=== PATIENT | female | born 1930 | race Caucasian/White ===

== ENCOUNTER 2016-12-24 16:03 | Observation (INO) ==
[2016-12-24 16:44] LABS: Basophils # (Auto) 0 K/mcL (0.0-0.3); Basophils % (Auto) 0.3 % (0.0-2.0); Eosinophils # (Auto) 0.4 K/mcL (0.0-0.7); Eosinophils % (Auto) 3.4 % (0.0-7.0); Granulocytes % (Auto) 50.5 % (38.0-78.0); Lymphocytes # (Auto) 4.6 K/mcL (1.5-4.8); Lymphocytes % (Auto) 38.6 % (15.5-49.0); Mean Cell Volume 85.6 fL (80.0-100.0); Mean Corpuscular Hemoglobin 27.4 pg (26.0-34.0); Monocytes # (Auto) 0.9 K/mcL (0.1-0.9); Monocytes % (Auto) 7.2 % (1.0-9.0); Platelet Count 240 K/mcL (140-440); RBC 3.79 M/mcL (4.00-5.20); Red Cell Distribution Width 18.6 % (11.5-14.5)
[2016-12-24 17:03] LABS: ALT/SGPT 10 U/l (0-40); Albumin 3.7 gm/dL (3.2-5.2); Albumin/Globulin Ratio 1.3 (1.0-2.3); Alkaline Phosphatase 63 U/L (39-117); Blood Urea Nitrogen 25 mg/dl (8-23)
--- NOTE | 2016-12-24 17:11 | Cat Scan Report ---
CLINICAL INFORMATION: Fell in the bathroom. Head injury. Unresponsive. COMPARISON: Previous brain CT scan dated 04/18/2014 TECHNIQUE: Axial noncontrast-enhanced images through the brain. FINDINGS: There is a left occipital calvarial fracture. There is mild depression. Fracture involves the skull base on the left. There is hemorrhage within left mastoid air cells. There is fluid within the left middle ear. There is also fluid within right mastoid air cells. There is hemorrhage within the sphenoid air cells. There is a fracture involving the left lateral wall of the sphenoid air cells. There is extensive pneumocephalus. There is a large right frontal hemorrhagic contusion which is considered contrecoup. Area of hemorrhagic contusion measures approximately 5 cm There is a large right subdural hematoma. This measures approximately 15 mm in thickness. There is extensive subarachnoid hemorrhage. There is intraventricular hemorrhage. Basilar cisterns are effaced. Right uncal herniation is likely. There is significant transfalcine herniation. There is 15 mm midline shift. Left lateral ventricle is trapped and enlarged. IMPRESSION: 1. Large right subdural hematoma. 2. Large hemorrhagic right frontal contusion. This is considered contrecoup 3. Extensive subarachnoid hemorrhage. Extensive pneumocephalus. 4. Left occipital fracture. Skull base fracture involving left temporal bone and sphenoid sinus 5. Effacement of basilar cisterns. Probable right uncal herniation 6. Transfalcine herniation with left midline shift measuring approximately 15 mm. Enlarged left lateral ventricle as above. Interpreted and Authenticated by: Adriel Milan 12/24/16
--- NOTE | 2016-12-24 17:12 | XRay Report ---
CLINICAL INFORMATION: Head injury. Status post intubation TECHNIQUE: AP portable semierect chest x-ray COMPARISON: Previous chest x-rays dated 11/11/2016, 04/20/2014 FINDINGS: Previous median sternotomy. Endotracheal tube 3.5 cm above the dior. Mild right perihilar infiltrate. Follow-up recommended. Lungs are otherwise clear. Heart size and vascularity are normal. Mild gaseous distention of the stomach. IMPRESSION: Endotracheal tube 3.5 cm above the dior. Interpreted and Authenticated by: Adriel Milan 12/24/16
[2016-12-24] MEDS ORDERED: 0.9 % SODIUM CHLORIDE 1,000 ML IV ONE (17:37)
[2016-12-24] MEDS ORDERED: SUCCINYLCHOLINE 20 MG/ML ML IV ONE (17:44)
[2016-12-24] MEDS ORDERED: MIDAZOLAM 5 MG/5 ML VIAL ONE (18:00)
--- NOTE | 2016-12-24 19:25 | Emergency Department Note ---
Altered Mental Status HPI - General Chief Complaint: Altered Mental Status Stated Complaint: Vomiting blood, Fall. Time Seen by Provider: 12/24/16 17:53 Source: EMS Mode of arrival: EMS Limitations: altered mental status - History of Present Illness HPI Narrative: This is a critical care note on this patient. Patient's daughter left her for about a half-hour found her in her bathroom with blood everywhere. Patient was unconscious. She had fallen and hit her head. Patient arrives in the emergency room unresponsive. - Related Data Home Medications Medication Instructions Recorded Confirmed Physical Therapy NOTAPPLIC 03/27/15 11/11/16 aspirin 81 mg tablet,delayed 81 mg PO QDAY tab 03/27/15 11/11/16 release walker See Dose Instructions .ROUTE 03/27/15 11/11/16 .MEDSUPPLY Ocuvite PO 09/20/15 11/11/16 Previous Rx's Medication Instructions Recorded cholestyramine (with sugar) 4 gram See Dose Instructions PO .COMPLEX 09/20/15 powder for susp in a packet #60 each clobetasol 0.05 % topical cream 1 applic TOPICAL QD-BID PRN #30 g 10/22/15 nitroglycerin 0.4 mg sublingual 0.4 mg SUBLINGUAL Q5MIN PRN #25 tab 06/03/16 tablet simvastatin 20 mg tablet 20 mg PO QPM #90 tab 07/14/16 nadolol 20 mg tablet 20 mg PO QDAY #30 tab 09/02/16 vitamin B12 500 mcg-folic acid 400 1 tab PO QDAY #30 tab 10/07/16 mcg tablet lamotrigine 50 mg disintegrating 50 mg PO BID #60 tab 10/16/16 tablet azithromycin 250 mg tablet 250 mg PO Q24H #6 tab 11/11/16 losartan 25 mg tablet See Label Instructions PO QDAY #90 12/12/16 tab Allergies Allergy/AdvReac Type Severity Reaction Status Date / Time Gatifloxacin [From TEQUIN] Allergy Unknown UNKNOWN Verified 12/24/16 16:10 moxifloxacin [From Avelox] Allergy Unknown Dizziness Verified 12/24/16 16:10 nitrofurantoin Allergy Unknown Unknown Verified 12/24/16 16:10 [From Macrobid] Penicillins Allergy Unknown UNKNOWN Verified 12/24/16 16:10 Procaine [From Novocain] Allergy Unknown Unknown Verified 12/24/16 16:10 Sulfa (Sulfonamide Allergy Unknown UNKNOWN Verified 12/24/16 16:10 Antibiotics) [SULFA (SULFONAMIDE ANTIBIOTICS)] sulfamethoxazole Allergy Unknown Unknown Verified 12/24/16 16:10 [From ] trimethoprim [From ] Allergy Unknown Unknown Verified 12/24/16 16:10 Review of Systems Limitations: ROS unobtainable due to patients medical condition Past Medical History - Past Medical History Medical history: Reports: cancer (bladder), coronary artery disease, GERD, hyperlipidemia, hypertension, renal disease, seizures, TIA, valvular heart disease Surgical history ED: Reports: cataract, coronary bypass (CABG), hysterectomy, other (ephrectomy) Physical Exam Patient had blood about her face. Her teeth are clenched and wouldn't open. In the emergency room she did vomit some blood. - General Limitations: altered mental status General appearance: obtunded - Head Head exam: other - Eye Eye exam: Present: PERRL - Neck Neck exam: Present: normal inspection - Chest Chest inspection: Present: normal inspection - Respiratory Respiratory exam: Present: normal lung sounds bilaterally - Cardiovascular Cardiovascular exam: Present: regular rate, normal rhythm, normal heart sounds - Abdominal Exam Abdominal exam: Present: soft. Absent: distention, tenderness - Neurological Exam Neurological exam: Present: other (nresponsive to painful stimuli) - Skin Skin exam: Present: warm, dry, intact Course Course Narrative: After the patient vomited we decided to intubate the patient. Intubation was carried out by one of the paramedics. Patient was given 2 mg of Versed and 100 mg of succinylcholine. 7-0 tube was passed. Vital Signs Pulse Rate 90 12/24/16 16:05 Respiratory Rate 22 12/24/16 16:05 Blood Pressure 202/80 12/24/16 16:05 Pulse Oximetry (%) 92 12/24/16 16:05 Pulse Rate 89 12/24/16 17:29 Respiratory Rate 22 12/24/16 16:05 Blood Pressure 194/90 12/24/16 17:29 Pulse Oximetry (%) 100 12/24/16 17:29 Altered Mental Status - MDM Narrative Medical decision making narrative: This patient had an advanced directive which made it clear if she had some sort of severe illness or injury that would leave her persistently comatose or incapacitated that she did not want any intervention and wanted nature to take its course. I discussed this with the patient's daughter who is agreeable. At that point the patient was extubated. She was then admitted to the floor for comfort care only. - Lab Data Result diagrams: 12/24/16 16:14 12/24/16 16:14 Lab Results 12/24/16 12/24/16 Range/Units 16:14 16:14 WBC 11.9 H (4.5-11.0) K/mcL RBC 3.79 L (4.00-5.20) M/mcL Hgb 10.4 L (12.0-15.0) g/dL Hct 32.4 L (36.0-48.0) % MCV 85.6 (80.0-100.0) fL MCH 27.4 (26.0-34.0) pg MCHC 32.0 (31.0-36.0) g/dL RDW 18.6 H (11.5-14.5) % Plt Count 240 (140-440) K/mcL MPV 7.8 (7.4-10.4) fL Gran % 50.5 (38.0-78.0) % Lymph % (Auto) 38.6 (15.5-49.0) % Catron % (Auto) 7.2 (1.0-9.0) % Eos % (Auto) 3.4 (0.0-7.0) % Baso % (Auto) 0.3 (0.0-2.0) % Gran # 6.0 (1.8-8.0) K/mcL Lymph # 4.6 (1.5-4.8) K/mcL Catron # 0.9 (0.1-0.9) K/mcL Eos # 0.4 (0.0-0.7) K/mcL Baso # 0 (0.0-0.3) K/mcL Sodium 133 (133-145) mmol/L Potassium 4.5 (3.3-5.1) mmol/L Chloride 100 (96-108) mmol/L Carbon Dioxide 21 L (22-30) mmol/L Anion Gap 12.0 (8-16) BUN 25 H (8-23) mg/dl Creatinine 1.4 H (0.6-1.1) mg/dl GFR Calculation 34 Glucose 144 H (70-105) mg/dL Calcium 9.2 (8.6-10.4) mg/dl Total Bilirubin 0.2 (0.0-1.0) mg/dL AST 25 (0-37) U/l ALT 10 (0-40) U/l Alkaline Phosphatase 63 (39-117) U/L Total Protein 6.5 (5.9-8.4) gm/dL Albumin 3.7 (3.2-5.2) gm/dL Globulin 2.8 (2.2-3.7) gm/dL Albumin/Globulin Ratio 1.3 (1.0-2.3) - Radiology Data Radiology results reviewed: Yes I reviewed the patient's radiology results. (CT of head showed severe injury with subdural hematoma and subarachnoid hemorrhage and hemorrhagic contusion. Also evidence of uncal herniation.) Critical Care Time Critical Care Time: Yes Total Critical Care Time: 60 Disposition Clinical Impression: Subarachnoid hemorrhage, Subdural hematoma, Skull fracture Disposition: Xfer As Inpt ([facility]) Condition: Critical Referrals: Tarun Granger MD [Primary Care Provider] - Time of Disposition: 19:29
--- NOTE | 2016-12-24 21:22 | Internal Med History&Physical ---
Medical - H&P: HPI Patient information: Note initiated : 12/24/16 at 9:17 pm Service Date, if different from initiated Date: [] Patient: Lashell Wynn 86 y/o F admitted on 12/24/16 for Vomiting blood, Fall.. Chief Complaint: [] History of present illness: Ms. Wynn is a 86 year old female with multiple medial issues presentee to the ER after a fall Daughter by the bed side who provided history, pt obtunded. Pt daughter who is the primary care provider was at work, and called in until 1 pm to check on the patient, however when she arrieved at around 3, she found the patient in the bathroom, fallen with blood all over the place and patient unresponsive. Patient was brought to the ER for further eval, given her AMS she was intubated initially, CT head obtained showed severe SDH, SAH, with herniation of brain, and severe contusion of brain. The patient did not wish any heroic measures to revive her, and in light of he advanced age. Palliative care was chosen. The patient was extubated and admitted to the medical floor for palliative care. 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) Hyperparathyroidism, secondary (Chronic) Hypertension, essential (Chronic) Hypertensive renal disease (Chronic) Macular degeneration of both eyes (Chronic) Microalbuminuria (Chronic) Mild aortic sclerosis (Chronic) Mitral valve disease (Chronic) Partial seizure with complex symptomatology (Chronic) Secondary hyperparathyroidism of renal origin (Chronic) Solitary lung nodule (Chronic) Transient cerebral ischemia (Chronic) Venous insufficiency (Chronic) Acquired absence of kidney (Resolved) Bladder cancer (Resolved) Cataract (Resolved) Delirium, subacute (Resolved) Diplopia (Resolved) Fracture, humerus closed (Resolved) GERD (gastroesophageal reflux disease) (Resolved) Gastritis (Resolved) Gout (Resolved) Hyponatremia (Resolved) Pneumonia (Resolved) Pseudophakia (Inactive) Rheumatic fever (Inactive) Surgical history: Past Surgical History History of nephrectomy (Chronic) S/P CABG x 3 (Chronic) History of appendectomy (Resolved) History of bladder repair surgery (Resolved) History of bladder suspension procedure (Resolved) History of hysterectomy (Resolved) History of shoulder surgery (Resolved) Postsurgical aortocoronary bypass status (Resolved) Varicose vein (Resolved) Family history: reviewed and not pertinent Social history: lives with daughter Medical - H&P: Meds Home Medications Medication Instructions Recorded Confirmed Type Physical Therapy NOTAPPLIC 03/27/15 11/11/16 History aspirin 81 mg tablet,delayed 81 mg PO QDAY tab 03/27/15 11/11/16 History release walker See Dose Instructions .ROUTE 03/27/15 11/11/16 History .MEDSUPPLY Ocuvite PO 09/20/15 11/11/16 History cholestyramine (with sugar) 4 gram See Dose Instructions PO .COMPLEX 09/20/15 Rx powder for susp in a packet #60 each clobetasol 0.05 % topical cream 1 applic TOPICAL QD-BID PRN #30 g 10/22/1511/11 Rx nitroglycerin 0.4 mg sublingual 0.4 mg SUBLINGUAL Q5MIN PRN #25 tab 06/03/16 Rx tablet simvastatin 20 mg tablet 20 mg PO QPM #90 tab 07/14/16 11/11/16 Rx nadolol 20 mg tablet 20 mg PO QDAY #30 tab 09/02/16 11/11/16 Rx vitamin B12 500 mcg-folic acid 400 1 tab PO QDAY #30 tab 10/07/16 11/11/16 Rx mcg tablet lamotrigine 50 mg disintegrating 50 mg PO BID #60 tab 10/16/16 11/11/16 Rx tablet azithromycin 250 mg tablet 250 mg PO Q24H #6 tab 11/11/16 11/11/16 Rx losartan 25 mg tablet See Label Instructions PO QDAY #90 12/12/16 Rx tab Allergies Allergy/AdvReac Type Severity Reaction Status Date / Time Gatifloxacin [From TEQUIN] Allergy Unknown UNKNOWN Verified 12/24/16 16:10 moxifloxacin [From Avelox] Allergy Unknown Dizziness Verified 12/24/16 16:10 nitrofurantoin Allergy Unknown Unknown Verified 12/24/16 16:10 [From Macrobid] Penicillins Allergy Unknown UNKNOWN Verified 12/24/16 16:10 Procaine [From Novocain] Allergy Unknown Unknown Verified 12/24/16 16:10 Sulfa (Sulfonamide Allergy Unknown UNKNOWN Verified 12/24/16 16:10 Antibiotics) [SULFA (SULFONAMIDE ANTIBIOTICS)] sulfamethoxazole Allergy Unknown Unknown Verified 12/24/16 16:10 [From ] trimethoprim [From ] Allergy Unknown Unknown Verified 12/24/16 16:10 Medical - H&P: Exam - Constitutional Vitals: Pulse Resp BP Pulse Ox 89 22 194/90 100 12/24/16 17:29 12/24/16 16:05 12/24/16 17:29 12/24/16 17:29 General appearance: severe distress - Head Additional comments: traumatic, blood coming from nose, ears, bilaterally, dried blood noted - Eye Additional comments: christi pupils fixed, right larger than left, non reactive to light - Neck Neck exam: Present: normal inspection - Respiratory Additional comments: air entry equal on both sides agonal breath with inspiratory stridor, rattles - Cardiovascular Cardiovascular exam: Present: normal rate and rhythm, +S1, +S2 - GI/Abdominal GI/Abdominal exam: Present: soft - Neurological Exam Additional comments: [id number] obtuned patient non reponsoive GCS score 3 Medical - H&P: Reslt - Labs CBC & Chem 7: 12/24/16 16:14 12/24/16 16:14 Medical - H&P: A/P (1) Intracerebellar and posterior fossa hemorrhage Current visit: Yes Status: Acute (2) Brain herniation Current visit: Yes Status: Acute (3) Skull fracture Current visit: Yes Status: Acute (4) Subarachnoid hemorrhage Current visit: Yes Status: Acute (5) Subdural hematoma Current visit: Yes Status: Acute (6) Palliative care status Current visit: Yes Status: Acute - Narrative A/P Narrative: Patient admitted for palliative care presently exhibiting agonal breaths, non responsive, pupils non reactive, is imminent Will admit to med surg IV morphine ativan for sob and anxiety. Daughter at bedside, she verbalized understanding of the poor prognosis.
[2016-12-24] MEDS ORDERED: ONDANSETRON 4 MG/2 ML VIAL IV PRN (21:38)
[2016-12-24] MEDS: LORazepam 2 MG/ML VIAL IV PRN (22:51)
[2016-12-24] MEDS: 0.9 % SODIUM CHLORIDE 10 ML SYRINGE IV SCH (22:51)
[2016-12-25] MEDS: LORazepam 2 MG/ML VIAL IV PRN (00:59)
[2016-12-25] MEDS ORDERED: LORazepam 2 MG/ML VIAL IV PRN (02:13)
[2016-12-25] MEDS ORDERED: LORazepam 2 MG/ML VIAL ONE ×4 (02:16→06:20)
[2016-12-25] MEDS: 0.9 % SODIUM CHLORIDE 10 ML SYRINGE IV SCH (05:53)
--- NOTE | 2016-12-25 09:48 | Death Note ---
Discharge Sum: Prov - Provider Patient information: Note initiated : 12/25/16 at 9:44 am Service Date, if different from initiated Date: [] Patient: Lashell Wynn 86 y/o F admitted on 12/24/16 for Vomiting Blood, Fall/ Brain Herniation, Skull Fx. Chief Complaint: [] Primary care physician: [f_Reg Prim Care Provider] Admitting clinician: Joseph Felix Discharge Sum: Diag - PCOD Cause of : Intracerebral hemorrhage Discharge Sum: Summary - Date and Time Date of admission: 12/24/16 21:13 Date of : 12/25/16 Time of : 07:40 - Summary Details: This is a 86 yr female with multiple medical issues, who was brought in the ER yesterday after having a unwitnessed fall in the bathroom. The patient was unconscious and obtunded on presentation. Pt daughter who is the career services representative was at work, and called in until 1 pm to check on the patient, however when she arrieved at around 3, she found the patient in the bathroom, fallen with blood all over the place and patient unresponsive. Patient was brought to the ER for further eval, given her AMS she was intubated initially for airway protection, CT head obtained showed severe SDH, SAH, with herniation of brain, and severe contusion of brain. The patient did not wish any heroic measures to revive her, and in light of he advanced age and patients wishes Palliative care was chosen. The patient was extubated and admitted to the medical floor for palliative care, the patient was treated with IV morphine and ativan . She this Morning at 7.40 AM. daughter was at bedside. - Additional Data Confirmation of as documented by pronouncing clinician: no pulse, no respirations, no heart sounds, pupils fixed and dilated Family: at bedside Attending/PCP notified?: Yes Attending physician: [f_Reg Attending Provider] Was code activated?: No Autopsy requested?: No certified driver examiner notified?: No Organ bank notified?: No Advance directives?: Yes Hospice patient?: No
== END 2016-12-25 12:45 | disposition expired ==
LOC: ICU 16:03 → ED 16:03 → ICU 21:10
PROVIDERS: ADMIT Internal Medicine; ATTEND Internal Medicine